=== PATIENT | female | born 1990 ===

== ENCOUNTER 2025-05-16 11:17 | Day surgery (SDC) | payer OTHER ==
[~2025-05-16] VITALS: Ht 162.6 cm; Wt 60.7 kg
[~2025-05-16 11:17] MED LIST: Lidocaine 1%-Epineph 1:200000 30 ML SDV ONE
[2025-05-16] MEDS ORDERED: ONDA4ODT MM (11:43)
[2025-05-16] MEDS ORDERED: Midazolam HCl 1MG / ML 2ML Vial ONE (13:20)
[2025-05-16] MEDS ORDERED: FentaNYL Citrate 50 MCG/ML 2 ML Injection ONE ×3 (13:20→15:18)
[2025-05-16] MEDS ORDERED: SuccINYLCHOLINE Chloride 100 MG/5 ML 5MLSYR ONE (13:21)
[2025-05-16] MEDS ORDERED: Dexamethasone Sod Phos 10 MG/ML 1ML VIAL ONE (13:21)
[2025-05-16] MEDS ORDERED: Lidocaine 1%-Epineph 1:200000 30 ML SDV INJ ONE (13:49)
== END 2025-05-16 16:40 | disposition home or self-care (01) ==
LOC: ORSCSDS 11:17
PROVIDERS: Otolaryngology
PROC: 0GTK0ZZ Resection of Thyroid Gland, Open Approach (ICD-10-PCS; principal; 2025-05-16 12:45)
DX: C73 Malignant neoplasm of thyroid gland (principal); Z79.899 Other long term (current) drug therapy
CPT/HCPCS: 88307; A9270; J0330; J1100; J2250; J2704; J3010; J7120